=== PATIENT | male | born 1960 | race African-American/Black ===

== ENCOUNTER 2019-11-14 16:15 | Emergency (ER) | payer OTHER ==
[~2019-11-14] VITALS: Ht 180.3 cm; Wt 128.0 kg
[2019-11-14] MEDS ORDERED: HYDROCODONE/ACETAMINOPHEN 5/325MG TABLET PO ONE (17:30)
[2019-11-14] MEDS ORDERED: CEPHALEXIN 250MG CAPSULE PO ONE (17:30)
[2019-11-14] MEDS ORDERED: TETANUS, DIPHTHERIA, PERTUSSIS VAC/PF 0.5ML (>7YR OLD) IM ONE (17:30)
[2019-11-14 18:05] VITALS: BP 154/95
== END 2019-11-14 18:51 | disposition home or self-care (01) ==
LOC: ER 16:15
DX: S68.122A Partial traumatic metacarpophalangeal amputation of right middle finger, initial encounter (principal); W31.89XA Contact with other specified machinery, initial encounter; Y93.89 Activity, other specified; Y92.89 Other specified places as the place of occurrence of the external cause; Z23 Encounter for immunization
CPT/HCPCS: 90471; 90715; 99283